=== PATIENT | female | born 1975 | race Caucasian/White ===

== ENCOUNTER → 2019-11-30 23:22 | Outpatient (CLI) | payer OTHER | END | disposition home or self-care (01) | LOC: D.MAMMO 09-28 08:45 | PROVIDERS: ATTEND Family Medicine | DX: Z12.31 Encounter for screening mammogram for malignant neoplasm of breast (principal) ==

== ENCOUNTER → 2019-12-06 10:29 | Outpatient (CLI) | payer OTHER | END | disposition home or self-care (01) | LOC: D.US 10:00 | PROVIDERS: ATTEND Family Medicine | DX: R92.8 Other abnormal and inconclusive findings on diagnostic imaging of breast (principal) ==

== ENCOUNTER → 2020-09-04 08:31 | Outpatient (CLI) | payer OTHER | END | disposition home or self-care (01) | LOC: D.HCCARDIO 08:31 → D.HCCECHO 12:30 | PROVIDERS: ATTEND Internal Medicine Cardiovascular Disease | DX: I20.9 Angina pectoris, unspecified (principal) ==

== ENCOUNTER 2020-09-13 11:34 | Day surgery (SDC) | payer OTHER ==
[~2020-09-13] VITALS: Ht 154.9 cm; Wt 91.7 kg
--- NOTE | ~2020-09-13 | HEMODYNAMI ---
PATIENT:PARISA TIPTON MEDICAL RECORD: [id number] : 75 LOCATION:[facility] ADMISSION DATE: 09/13/20 Generatedon:114:01 Patient name: PARISA TIPTON Patient #: [id number] : 1975 Date of study: 09/13/2020 Page: Of Hemodynamic Procedure Report Patient Data Patient Demographics Procedure consent was obtained First Name: PARISA Gender: Female Last Name: DANUTA : 1975 Middle Initial: HAKEEM Age: 45 year(s) Patient #: [id number] Race: SSN: [id number] Additional ID: [id number] Contact details [address]: [address] [place] [address] rd State: [place] City: [place] Zip code: [address] Past Medical History Allergies Allergen Reaction Date Comments Reported Other allergy 09/13/2020 darvocet, sulfa Admission Admission Data Admission Date: 09/13/2020 Admission Time: 11:34 Admit Source: Other Lab Results Lab Result Date: 09/13/2020 Lab Result Time: 0:00 Biochemistry Name Units Result Min Max BUN mg/dl 17 --(---*)-- 7 18 Creatinine mg/dl 0.8 --(-*--)-- 0.6 1.3 eGFR ml/min 82.01003 *-(----)-- 90 120 NONAFRICAN CBC Name Units Result Min Max Hematocrit % 38.3 *-(----)-- 42 54 Hemoglobin g/dl 13.2 -*(----)-- 13.5 17.5 Procedure Procedure Types Cath Procedure Diagnostic Procedure [facility] w/Coronaries Sedation Charges Moderate Sedation 25-39 minutes Procedure Description Procedure Date Procedure Date: 09/13/2020 Procedure Start Time: 13:31 Procedure End Time: 14:00 Procedure Staff Name Function Stevan Gonsalves MD Performing Physician America Somers RT Monitor Adrianna Yu RT Scrub Ramone Deutsch RN Nurse Procedure Data Cath Procedure Fluoroscopy Diagnostic fluoroscopy Total fluoroscopy Time: 6.1 time: 6.1 min min Diagnostic fluoroscopy Total fluoroscopy dose: 590 dose: 590 mGy mGy Contrast Material Contrast Material Type Amount (ml) Isovue 370 61 Entry Location Entry Primary Successful Side Size Upsize Upsize Entry Closure [place] ccessful Closure Location (Fr) 1 (Fr) 2 (Fr) Remarks Device Remarks Radial Right 6 Fr Mechanical artery Short Compression Femoral Right 5 Fr Exoseal artery Estimated blood loss: 5 ml Diagnostic catheters Device Type Used For End Catheter Placement DIAGNOSTIC [place] 110cm 5 Procedure Fr catheter (119157) DIAGNOSTIC JL 3.5 5Fr Procedure catheter ([id number]) Procedure Complications No complications Procedure Medications Medication Administration Route Dosage Oxygen etCO2 Nasal cannula 2 l/min Lidocaine 2% added to field 20 Heparin Flush Bag added to field 2 bags (1000units/500ml NS) 0.9% NaCl I.V. 100 ml/hr Radial Cocktail I.A. 1 syringe (Verapamil 2mg/Nitro 400mcg/Heparin 1500units) Versed I.V. 1 mg Fentanyl I.V. 50 mcg Versed I.V. 1 mg Fentanyl I.V. 50 mcg Versed I.V. 1 mg Fentanyl I.V. 50 mcg Versed I.V. 1 mg Fentanyl I.V. 50 mcg Versed I.V. 1 mg Versed I.V. 1 mg Radial Cocktail I.A. 1 syringe (Verapamil 2mg/Nitro 400mcg/Heparin 1500units) Versed I.V. 1 mg Fentanyl I.V. 50 mcg Versed I.V. 1 mg Versed I.V. 2 mg Fentanyl I.V. 50 mcg Hemodynamics Rest HGB: 13.2 (g/dl) Heart Rate: 90 (bpm) Pressure Samples Time Site Value (mmHg) Purpose Heart Use Rate(bpm) 13:37 LV 176/58,67 Snapshot 107 Gradients Valve Time Site Site Mean SEP/DFP Peak To Heart Use 1 2 (mmHg) (sec/min) Peak Rate (mmHg) (bpm) Aortic 13:38 LV AO 118 Snapshots Pre Cath Intra NCS Post Cath Vital Signs Time Heart Resp SPO2 etCO2 NIBP (mmHg) Rhythm Pain Sedation Rate (ipm) (%) (mmHg) Status Level (bpm) 13:13:03 99 16 96 37.8 137/77(100) NSR 0 (11) 10(A) , No pain 13:17:28 94 22 96 26.6 134/80(100) NSR 0 (11) 10(A) , No pain 13:21:52 96 14 98 25.9 128/72(91) NSR 0 (11) 10(A) , No pain 13:26:16 91 11 97 29.6 119/69(88) NSR 0 (11) 10(A) , No pain 13:30:34 90 11 97 23.7 118/70(95) NSR 0 (11) 10(A) , No pain 13:34:54 88 12 97 27.4 118/65(84) NSR 0 (11) 9(A) , No pain 13:39:14 108 16 95 29.6 137/64(87) NSR 0 (11) 9(A) , No pain 13:43:41 111 24 97 29.6 119/72(101) NSR 0 (11) 10(A) , No pain 13:47:57 102 14 97 30.3 127/80(114) NSR 0 (11) 9(A) , No pain 13:52:19 96 12 97 29.6 120/69(101) NSR 0 (11) 9(A) , No pain 13:56:37 110 16 98 33.3 131/74(111) NSR 0 (11) 10(A) , No pain 14:00:57 101 13 99 36.2 144/72(98) NSR 0 (11) 10(A) , No pain Medications Time Medication Route Dose Verified Delivered Reason Notes Effectiveness by by 13:12:28 Oxygen etCO2 2 l/min Stevan Buffie used for Nasal Major Deutsch RN procedure cannula 13:12:35 Lidocaine 2% added 20ml Stevan Stevan for local to vial Major Gonsalves MD anesthetic field 13:12:41 Heparin Flush added 2 bags Stevan Stevan used for Bag to Major Gonsalves MD procedure (1000units/500ml field NS) 13:12:50 0.9% NaCl I.V. 100 Stevan Buffie Per ml/hr Major Deutsch RN physician 13:15:38 Radial Cocktail I.A. 1 Stevan Stevan for (Verapamil syringe Major Gonsalves MD vasodilation 2mg/Nitro 400mcg/Heparin 1500units) 13:19:06 Versed I.V. 1 mg Stevan Buffie for sedation Major Deutsch RN 13:19:12 Fentanyl I.V. 50 mcg Stevan Buffie for sedation Major Deutsch RN 13:20:41 Versed I.V. 1 mg Stevan Buffie for sedation Major Deutsch RN 13:20:45 Fentanyl I.V. 50 mcg Stevan Buffie for sedation Major Deutsch RN 13:23:20 Versed I.V. 1 mg Stevan Buffie for sedation Major Deutsch RN 13:23:24 Fentanyl I.V. 50 mcg Stevan Buffie for sedation Major Deutsch RN 13:27:44 Versed I.V. 1 mg Stevan Buffie for sedation Major Deutsch RN 13:27:48 Fentanyl I.V. 50 mcg Stevan Buffie for sedation Major Deutsch RN 13:31:02 Versed I.V. 1 mg Stevan Buffie for sedation Major Deutsch RN 13:33:01 Versed I.V. 1 mg Stevan Buffie for sedation Major Deutsch RN 13:36:06 Radial Cocktail I.A. 1 Stevan Buffie for (Verapamil syringe Major Deutsch RN vasodilation 2mg/Nitro 400mcg/Heparin 1500units) 13:37:20 Versed I.V. 1 mg Stevan Buffie for sedation Major Deutsch RN 13:43:46 Fentanyl I.V. 50 mcg Stevan Buffie for sedation Major Deutsch RN 13:43:56 Versed I.V. 1 mg Stevan Buffie for sedation Major Deutsch RN 13:47:33 Versed I.V. 2 mg Stevan Buffie for sedation Major Deutsch RN 13:47:44 Fentanyl I.V. 50 mcg Stevan Buffie for sedation Major Deutsch RN Procedure Log Time Note 12:10:56 Informed consent obtained and on chart 12:11:02 Diagnostic Cath Status : Elective 12:28:55 Procedure Status Elective Heart Cath (OP). 12:28:58 Time tracking: Regular hours (M-F 7:00 - 5:00) 12:29:04 Plan of Care:Hemodynamics will remain stable., Cardiac rhythm will remain stable., Comfort level will be maintained., Respiratory function will remain adequate., Patient/ family verbilizes understanding of procedure., Procedure tolerated without complication., Recovers from procedure without complications.. 12:50:01 Ramone Deutsch RN sent for patient. Start room use. 13:03:14 Patient received from Pre/Post Procedure Room to CCL 1 Alert and oriented. Tansferred to table in Supine position. 13:03:15 Warm blankets applied, and maco hugger turned on for patient comfort. 13:03:16 Correct patient and procedure confirmed by team. 13:03:16 ECG and BP/O2 sat monitors applied to patient. 13:11:37 Vital chart was started 13:12:23 Admit Source: Other 13:12:28 Oxygen 2 l/min etCO2 Nasal cannula was administered by Ramone Deutsch RN; used for procedure; Verbal order read back and verified. 13:12:28 ACC Patient presents with Stable Angina CCS Anginal Class 2--Slight limitation of ordinary activity. 13:12:30 Baseline sample Acquired. 13:12:33 Rhythm: sinus rhythm 13:12:35 Lidocaine 2% 20ml vial added to field was administered by Stevan Gonsalves MD; for local anesthetic; Verbal order read back and verified. 13:12:35 Full Disclosure recording started 13:12:41 Heparin Flush Bag (1000units/500ml NS) 2 bags added to field was administered by Stevan Gonsalves MD; used for procedure; Verbal order read back and verified. 13:12:50 0.9% NaCl 100 ml/hr I.V. was administered by Ramone Deutsch RN; Per physician; Verbal order read back and verified. 13:15:02 H&P Date Dictated: 08/24/2020 Within 30 days and on chart.. 13:15:02 Pre-procedure instructions explained to patient. 13:15:03 Pre-op teaching completed and patient verbalized understanding. 13:15:05 Family in waiting room. 13:15:07 Patient NPO since Midnight. 13:15:18 Patient allergic to Other allergydarvocet, sulfa 13:15:20 Is the patient allergic to Iodine/contrast media? No. 13:15:24 Was the patient premedicated? Yes 13:15:25 Is patient on blood thinner?No 13:15:27 Patient diabetic? Yes. 13:15:28 If diabetic: On Metformin? No 13:15:31 Patient not . Patient has had hysterectomy. 13:15:38 Radial Cocktail (Verapamil 2mg/Nitro 400mcg/Heparin 1500units) 1 syringe I.A. was administered by Stevan Gonsalves MD; for vasodilation; Verbal order read back and verified. 13:15:38 HCG/Urine : completed and on chart 13:15:42 ----Pre-sedation anethsthesia assessment.---- 13:15:44 Previous problem with sedation/anesthesia? No ? 13:15:45 Snore? Yes 13:15:47 Sleep apnea? No 13:15:48 Deviated septum? No 13:15:49 Opens mouth fully? Yes 13:15:50 Sticks out tongue? Yes 13:15:51 Airway obstruction? No ? 13:16:01 Dentures? No ? 13:16:04 Pre procedure: right dorsailis pedis pulse 1+ Palpable, but thready & weak; easily obliterated 13:16:07 Modified Quique's test Ulnar < 7 seconds 13:16:10 Patient pain scale 0/10 ?. 13:16:16 IV patent on arrival in right antecubital with 0.9% NaCl at [facility]. 13:17:59 Lab Result : BUN 17 mg/dl 13:17:59 Lab Result : Creatinine 0.8 mg/dl 13:17:59 Lab Result : eGFR NONAFRICAN 82.51816 ml/min 13:17:59 Lab Result : Hemoglobin 13.2 g/dl 13:17:59 Lab Result : Hematocrit 38.3 % 13:18:04 Lab results completed and on chart. 13:18:17 Stress Test: yes; abnormal APICAL 13:18:21 Right Radial & Right Groin area was prepped with chlora-prep and draped in sterile fashion 13:18:22 Alarms reviewed by R. N. 13:18:23 Sharps counted by scrub and verified by R.N. 13:18:28 Use device set Radial Dx or PCI 13:18:29 ACIST Syringe (92081) opened to sterile field. 13:18:30 Medline Cath Pack ([id number]) opened to sterile field. 13:18:31 Bag Decanter (2002S) opened to sterile field. 13:18:31 ACIST Hand Control (92781) opened to sterile field. 13:18:32 ACIST Manifold (82944) opened to sterile field. 13:18:33 MBrace Wrist Support ([id number]) opened to sterile field. 13:18:34 NEEDLE Cook 21G 4cm Radial (Y68800) opened to sterile field. 13:18:36 EMERALD Guide Wire (801-807) opened to sterile field. 13:18:37 SHEATH 6FR RAIN (0975181) opened to sterile field. 13:18:46 --------ALL STOP TIME OUT------ 13:18:46 Final Timeout: patient, procedure, and site verified with staff and physician. All members of the team are in agreement. 13:18:48 Right Radial & Right Groin site verified by team. 13:18:52 Fire Safety Assessment: A--An alcohol-based skin anteseptic being used preoperatively., C--Open oxygen or nitrous oxide is being used., D--An ESU, laser, or fiber-optic light is being used. 13:18:55 Physical assessment completed. ASA score P 2 - A patient with mild systemic disease as per Stevan Gonsalves MD. 13:18:57 2) 60-89 Mildly reduced kidney function, and other findings (as for stage 1) point to kidney disease. 13:19:06 Versed 1 mg I.V. was administered by Ramone Deutsch RN; for sedation; Verbal order read back and verified. 13:19:12 Fentanyl 50 mcg I.V. was administered by Ramone Deutsch RN; for sedation; Verbal order read back and verified. 13:19:18 Maximum allowable contrast dose (3.7 X eGFR X 0.75)227 ml. 13:19:23 Sedation plan: IV Moderate Sedation Medication:Versed, Fentanyl 13:20:41 Versed 1 mg I.V. was administered by Ramone Deutsch RN; for sedation; Verbal order read back and verified. 13:20:45 Fentanyl 50 mcg I.V. was administered by Ramone Deutsch RN; for sedation; Verbal order read back and verified. 13:20:45 Risk of Mortality: 0.1 13:20:48 Risk of blood transfusion: 2.3 13:20:51 Risk of BARBARA: 2.4 13:23:20 Versed 1 mg I.V. was administered by Ramone Deutsch RN; for sedation; Verbal order read back and verified. 13:23:24 Fentanyl 50 mcg I.V. was administered by Ramone Deutsch RN; for sedation; Verbal order read back and verified. 13:27:44 Versed 1 mg I.V. was administered by Ramone Deutsch RN; for sedation; Verbal order read back and verified. 13:27:48 Fentanyl 50 mcg I.V. was administered by Ramone Deutsch RN; for sedation; Verbal order read back and verified. 13:31:01 Procedure started. 13:31:02 Versed 1 mg I.V. was administered by Ramone Deutsch RN; for sedation; Verbal order read back and verified. 13:31:07 Local anesthetic to right radial artery with Lidocaine 2% by Stevan Gonsalves MD.INITIAL ACCESS ONLY 13:33:01 Versed 1 mg I.V. was administered by Ramone Deutsch RN; for sedation; Verbal order read back and verified. 13:35:36 A 6 Fr Short sheath was inserted into the Right Radial artery 13:36:06 Radial Cocktail (Verapamil 2mg/Nitro 400mcg/Heparin 1500units) 1 syringe I.A. was administered by Ramone Deutsch RN; for vasodilation; Verbal order read back and verified. 13:36:30 A DIAGNOSTIC [place] 110cm 5 Fr catheter (986428) was advanced over the wire and used for Procedure. 13:37:20 Versed 1 mg I.V. was administered by Ramone Deutsch RN; for sedation; Verbal order read back and verified. 13:37:39 LV gram done using DIAZ 13:37:42 Injector settings: Ml/sec: 5, Volume: 15, 13:37:55 LV hemodynamics recorded. 13:38:07 EF : 60 % 13:38:54 RCA angiography performed. 13:39:05 Injector settings: Ml/sec: 3, Volume: 6, 13:41:54 Catheter removed. 13:42:15 A DIAGNOSTIC JL 3.5 5Fr catheter ([id number]) was advanced over the wire and used for Procedure. 13:43:46 Fentanyl 50 mcg I.V. was administered by Ramone Deutsch RN; for sedation; Verbal order read back and verified. 13:43:56 Versed 1 mg I.V. was administered by Ramone Deutsch RN; for sedation; Verbal order read back and verified. 13:45:09 UNABLE TO ENGAGE LCA GOING GROIN. 13:45:40 Local anesthetic to right femoral artery with Lidocaine 2% by Stevan Gonsalves MD.ADDITIONAL ACCESS 13:45:51 SHEATH 5FR [place] (DLR143) opened to sterile field. 13:47:33 Versed 2 mg I.V. was administered by Ramone Deutsch RN; for sedation; Verbal order read back and verified. 13:47:44 A 5 Fr sheath was inserted into the Right Femoral artery 13:47:44 Fentanyl 50 mcg I.V. was administered by Ramone Deutsch RN; for sedation; Verbal order read back and verified. 13:50:46 5 Fr JL 3.5 guide catheter was inserted over the wire 13:51:33 LCA angiography performed. 13:51:35 Injector settings: Ml/sec: 3, Volume: 6, 13:52:18 ACCDominant side:Co-Dominant 13:53:00 Catheter removed. 13:53:07 ZEPHYR REGULAR TR BAND (422422) opened to sterile field. 13:53:09 Tegaderm 4 x 4 (1626W) opened to sterile field. 13:53:49 EXOSEAL 5Fr (EX500) opened to sterile field. 13:57:20 Sheath removed intact; hemostasis achieved with Mechanical Compression to the Right Radial artery. 13:57:26 Sheath removed intact; hemostasis achieved with Exoseal to the Right Femoral artery. 13:57:29 Procedure ended.(Physican Out) 13:57:58 Fluoroscopy time 06.10 minutes. 13:58:03 Fluoroscopy dose: 590 mGy 13:58:03 Flurop Dose total: 590 13:58:08 Dose Area Product 95699 mGy/cm. 13:58:18 Contrast amount:Isovue 370 61ml. 13:58:28 Maximum allowable dose exceeded? No. 13:58:29 Sharps counted by scrub and verified by R.N. 13:58:32 [place] band inflated with 11cc of air. 13:58:37 Post-op/insertion site Right Femoral artery dressed using a 4 x 4 and Tegaderm. 13:58:42 Post right femoral artery:stable, soft, clean and dry 13:58:51 Post Procedure Pulses reassessed and unchanged 13:58:53 Post procedure: right dorsailis pedis pulse 1+ Palpable, but thready & weak; easily obliterated. 13:58:57 Post-procedure physical assessment completed. ASA score P 2 - A patient with mild systemic disease as per Stevan Gonsalves MD. 13:58:59 Post procedure rhythm: unchanged. 13:59:03 Estimated blood loss: 5 ml 13:59:05 Post procedure instruction explained to patient.Patient verbalizes understanding. 13:59:06 Patient needs reinforcement of post procedure teaching. 13:59:26 Procedure type changed to Cath procedure, Diagnostic procedure, LHC, [facility] w/Coronaries, Sedation Charges, Moderate Sedation 25-39 minutes 14:00:33 Procedure and supply charges have been captured, reviewed, submitted and are correct. 14:00:37 Procedure Complication : No complications 14:00:40 Vital chart was stopped 14:00:42 [facility] Findings: mild to moderate CAD (<70%) 14:00:43 Operative report dictated upon procedure completion. 14:00:43 See physician's report for complete and final results. 14:00:45 Report given to Pre/Post Procedure Room. 14:00:47 Patient transfered to Pre/Post Procedure Room with Stretcher. 14:00:49 Procedure ended. 14:00:49 Full Disclosure recording stopped 14:01:00 End room use (Document Last) 14:01:12 End room use (Document Last) Device Usage Item Name Manufacture Quantity Catalog Hospital Part Current Minima l Lot# / Number Charge Number Stock Stock Serial# Code ACIST Acist 1 76837 175503 469385 114717 20 Syringe Medical (19726) Systems Inc Medline Medline 1 [id number] 596382 91199 190566 5 Cath Pack ([id number]) Bag Microtek 1 2001S 384148 25946 579496 5 Decanter Medical Inc. () ACIST Hand Acist 1 86434 114892 966132 377513 5 Control Medical (40502) Systems Inc ACIST Acist 1 03555 243678 104258 394513 5 Manifold Medical (92850) Systems Inc MBrace Advanced 1 140-0250-00 444945 68252 954251 5 Wrist Vascular Support Dynamics ([id number]) NEEDLE ZIIBRA 1 Z25020 227990 343408 261734 5 21G 4cm Radial (P60785) EMERALD Cardinal 1 502-455 003204 148209 881270 5 Guide Wire Health (502-455) SHEATH 6FR Cardinal 1 2423870 415134 4433371 932343 5 RAIN Health (7520365) DIAGNOSTIC Terumo 1 40-5013 263422 687933 777385 5 [place] 110cm 5 Fr catheter (186302) DIAGNOSTIC Cardinal 1 [id number] 308527 146246 446044 5 JL 3.5 5Fr Health catheter (073202B) SHEATH 5FR Terumo 1 [id number] 829727 362674 556505 5 [place] (HDT420) ZEPHYR Cardinal 1 429836 086594 7513598 325208 5 REGULAR TR Health BAND (853032) Tegaderm 4 3M 1 1626W 976154 860200 488789 5 x 4 (1626W) EXOSEAL 5Fr Cardinal 1 EX500 615219 080014 557179 10 (EX500) Health Signature Audit [place] Stage Time Signature Unsigned Intra-Procedure 09/13/2020 America Somers 2:01:12 PM RT(R) Intra-Procedure 09/13/2020 Ramone Deutsch RN 2:01:27 PM Intra-Procedure 09/13/2020 Stevan Gonsalves MD 2:01:39 PM [facility] [address] [place] [place] [address]
[2020-09-13] MEDS ORDERED: LIPITOR10 MG PO (11:44)
[2020-09-13] MEDS ORDERED: LISINOPRIL10 MG PO (11:47)
[2020-09-13] MEDS ORDERED: QVAR REDIHALE10.6 G1 INH (11:48)
[2020-09-13 11:56] VITALS: BP 156/78; Ht 154.9 cm; Wt 91.7 kg
[2020-09-13 12:22] LABS: BASOPHILS 0.6 % (0-2); EOSINOPHILS 2.1 % (0-7); HEMATOCRIT 38.3 % (36.0-48.0); HEMOGLOBIN 13.2 g/dL (12-16); IMMATURE GRANULOCYTES 0.3 % (0-5); LYMPHOCYTE ABS# 1.81 10x3/uL (1.18-3.74); LYMPHOCYTES 22.7 % (15-50); MCH 27.2 pg (26.0-34.0); MCHC 34.5 g/dL (31.0-37.0); MEAN PLATELET VOLUME 10.3 fL (7.4-10.4); MONOCYTES 7.9 % (2-11); NEUTROPHIL ABS# 5.31 10x3/uL (1.56-6.13); NEUTROPHILS 66.4 % (40-80); PLATELET COUNT 289 10x3/uL (130-400); RBC 4.85 10x6/uL (4.00-5.40); RDW 13.6 % (11.5-14.5)
[2020-09-13 12:23] LABS: HCG SERUM NEGATIVE (NEGATIVE)
[2020-09-13 12:34] LABS: ALT (SGPT) 40 U/L (10-68); CALC OSMOLALITY 279 mosm/kg (275-300); CALCIUM 9.2 mg/dL (8.5-10.1); CARBON DIOXIDE 25.1 mmol/L (21.0-32.0); CHLORIDE - SERUM 103 mmol/L (98-107); CHOL - HDL RATIO 2.6 ratio (2.3-4.1); CHOLESTEROL, TOTAL 165 mg/dL (0-200); CREATININE - SERUM 0.8 mg/dL (0.6-1.3); GLUCOSE 105 mg/dL (74-106); HDL CHOLESTEROL 64 mg/dL (32-96); LDL CHOLESTEROL 85 mg/dL (0-100); LDL-HDL RATIO 1.3 ratio (1.5-3.5); POTASSIUM - SERUM 4.1 mmol/L (3.5-5.1); SODIUM 139 mmol/L (136-145); TRIGLYCERIDE 81 mg/dL (30-200); UREA NITROGEN 17 mg/dL (7-18); eGFR NON AFRICAN AMERICAN 82 mL/min (90-120)
--- NOTE | 2020-09-13 14:08 | NUR ---
PT ARRIVED BY STRETCHER. PLACED ON MONITORS. ASSESSMENT COMPLETED. VSS AT THIS TIME. CALL LIGHT WITHIN REACH. PT'S DAUGHTER AT BEDSIDE.
--- NOTE | 2020-09-13 14:23 | NUR ---
PT RESTING COMFORTABLY. VSS AT THIS TIME. RIGHT WRIST Z BAND IN PLACE. NO BLEEDING/HEMATOMA NOTED. RIGHT GROIN DRESSING C/D/I. NO S/S OF HEMATOMA NOTED. ALL EXT WITH PALPABLE PULSES X 4.
--- NOTE | 2020-09-13 14:53 | NUR ---
PT RESTING COMFORTABLY. VSS. CALL LIGHT WITHIN REACH. RIGHT GROIN DRESSING C/D/I. NO S/S OF HEMATOMA NOTED. RIGHT PEDAL PULSE PALPABLE. RIGHT WRIST Z BAND IN PLACE. NO BLEEDING/HEMATOMA NOTED. RIGHT HAND WARM TO TOUCH.
--- NOTE | 2020-09-13 15:15 | NUR ---
RIGHT GROIN DRESSING C/D/I. NO S/S OF HEMATOMA NOTED. HEAD OF BED INC TO 30 DEGREES. TOLERATED WELL. PT SET UP WITH DRINK. DENIES NAUSEA/PAIN. 2cc OF AIR REMOVED FROM Z BAND. NO BLEEDING/HEMATOMA NOTED. FAMILY AT BEDSIDE. CALL LIGHT WITHIN REACH.
--- NOTE | 2020-09-13 15:30 | NUR ---
2cc OF AIR REMOVED FROM Z BAND. NO BLEEDING/HEMATOMA NOTED. PT AWAKE AND ALERT. EATING HER SANDWICH. DENIES NAUSEA/PAIN. RIGHT GROIN DRESSING C/D/I. NO S/S OF HEMATOMA NOTED.
--- NOTE | 2020-09-13 15:45 | NUR ---
4cc OF AIR REMOVED FROM Z BAND. NO BLEEDING/HEMATOMA NOTED. TOLERATED WELL. CALL LIGHT WITHIN REACH.
--- NOTE | 2020-09-13 16:00 | NUR ---
REMAINDER OF AIR REMOVED FROM Z BAND. NO BLEEDING/HEMATOMA NOTED. TOLERATED WELL. CALL LIGHT WITHIN REACH. FAMILY AT BEDSIDE.
--- NOTE | 2020-09-13 16:15 | NUR ---
Z BAND REMOVED AND DRESSING APPLIED. NO BLEEDING/HEMATOMA NOTED. RIGHT GROIN DRESSING C/D/I. NO S/S OF HEMATOMA NOTED. PIV D/C'D WITH CATH TIP INTACT. TOLERATED WELL. PT INSTRUCTED TO GET UP AND DRESSED AT THIS TIME. DAUGHTER AT BEDSIDE TO ASSIST. CALL LIGHT WITHIN REACH.
--- NOTE | 2020-09-13 16:20 | NUR ---
DISCUSSED DISCHARGE INSTRUCTIONS WITH PT AND PT'S FAMILY. THEY VOICED UNDERSTANDING.
--- NOTE | 2020-09-13 16:25 | NUR ---
PT AMBULATED TO RESTROOM AND VOIDED WITHOUT DIFFICULTY. STEADY GAIT NOTED.
--- NOTE | 2020-09-13 16:30 | NUR ---
RIGHT GROIN DRESSING C/D/I. NO S/S OF HEMATOMA NOTED. RIGHT WRIST DRESSING C/D/I. NO S/S OF HEMATOMA NOTED. PT TAKEN OUT TO VEHICLE BY WHEELCHAIR. NO S/S OF DISTRESS NOTED. ALL BELONGINGS AND PAPERWORK IN HAND.
== END 2020-09-13 16:30 | disposition home or self-care (01) ==
LOC: D.CATH 11:34
PROVIDERS: ATTEND Internal Medicine Cardiovascular Disease
DX: I20.9 Angina pectoris, unspecified (principal); R94.39 Abnormal result of other cardiovascular function study